=== PATIENT | female | born 1980 | race African-American/Black ===

== ENCOUNTER 2016-09-27 16:56 | Emergency (ER) | payer OTHER ==
[~2016-09-27] VITALS: Ht 165.1 cm; Wt 90.7 kg
[~2016-09-27 16:56] MED LIST: ASPIRIN EC325 M2 PO; ASPIRIN325 MG PO; BACTRIM DS TAB1 EACH PO; BENTYL20 M1 PO; CARAFATE1 GM/10 M1 PO; CIPRO 500MG (E500 MG PO; CLINDAMYCIN HC300 M1 PO; DIPHENHYDRAMINE25 M4 PO; DONNATAL TABL16.2 MG PO; DULOXETINE HCL30 MG; FERROUS SULFAT325 M3 PO; FLOVENT HFA10.6 GM INH; LABETALOL HYDR200 MG PO; MACROBID100 MG PO; MAGNESIUM OXID400 MG PO; MIRENA1 EACH; OMEPRAZOLE20 M2 PO; OXYCODONE HCL5 MG PO; PANTOPRAZOLE SO40 M1 PO; PERCOCET 10-321 EACH PO; PERCOCET 325 MG1 TA2 PO; PERCOCET 325 MG1 TAB PO; PERCOCET 5-3251 EACH PO; PHENERGAN12.5 M2 RC; PROPRANOLOL HCL20 M1 PO; PROVENTIL HFA6.7 GM INH; REGLAN10 M1 PO; TYLENOL TAB 32325 MG PO; ZOFRAN ODT4 M1 PO; ZOFRAN ODT4 M1 SL; ZOFRAN ODT4 MG PO; ZOFRAN ODT4 MG SL; ZOFRAN4 M1 PO
--- NOTE | 2016-09-27 18:38 | ED GENERAL ADULT ---
History of Present Illness General Chief Complaint: Abdominal Pain/Flank Pain Stated Complaint: ABDOMINAL PAIN,N/V/BLOOD IN URINE Source: patient Exam Limitations: no limitations Allergies Coded Allergies: ibuprofen (Severe, ANAPHYLAXIS 07/10/16) ketorolac (From Toradol) (Severe, ANAPHYLAXIS 07/10/16) peanut (Severe, ANAPHYLAXIS 07/10/16) penicillin G (Severe, ANAPHYLAXIS 07/10/16) Triage Note: C/O LOWER ABDOMINAL PAIN RADIATING TO R FLANK X 2 WEEKS, WAS DXD WITH UTI BY PMD, WAS ON CIPRO X 1 WEEK, FEELING WORSE NOW WITH BLOOD IN IN URINE AND NAUSEA AND VOMITING. Triage Nurses Notes Reviewed? yes : No Patient currently breastfeeds: No HPI: 35-year-old woman seen for evaluation of urinary pain and bloody urine. Patient reports that approximately 2-1/2 weeks ago she developed symptoms of urinary pain/frequency/urgency and subsequently visited her primary care provider a few days after symptoms onset for which she was diagnosed with a urinary tract infection. She was discharged to home with a prescription for ciprofloxacin for 7 days that she reportedly completed with no improvement of her symptoms. She reports persistence of her urinary frequency/pain/urgency now with dark bloody urine. He now reports associated fever, chills, chest discomfort, mild shortness of breath, nausea with associated bilious vomiting. (COLLIN RUANO,NICOLASA) Vital Signs & Intake/Output Vital Signs & Intake/Output Vital Signs Date Time Temp Pulse Resp B/P Pulse O2 O2 Flow FiO2 Ox Delivery Rate 09/27 2107 98.6 87 20 126/66 97 Room Air 09/27 1733 98.4 94 20 179/78 99 Room Air ED Intake and Output 09/28 0000 09/27 1200 Intake Total 1000 Output Total Balance 1000 Intake, IV 1000 Patient 90.718 kg Weight Reconcile Medications Albuterol Sulfate (Proventil Hfa) 90 MCG HFA.AER.AD 2 PUFF INH Q4H PRN WHEEZING/SHORTNESS OF BREATH (Reported) Aspirin (Ecotrin*) 325 MG TABLET.DR 1 TAB PO DAILY HEART/BLOOD (Reported) Dicyclomine HCl (Bentyl) 20 MG TABLET 1 TAB PO Q6H PRN ABDOMINAL PAIN Diphenhydramine HCl 25 MG CAPSULE 1 CAP PO PRN ITCHING (Reported) Duloxetine HCl (Unknown Strength) CAPSULE. (Unknown Dose) UNKNOWN (Reported ) Ferrous Sulfate 325 MG (65 MG IRON) TABLET 1 TAB PO DAILY SUPPLEMENT ( Reported) Fluticasone Propionate (Flovent Hfa) 0.044 MG/Actuation NIXON 2 PUFF INH BID ASTHMA/COPD (Reported) 44 MCG PER PUFF Levonorgestrel (Mirena) 52 MG ICR CONTROL (Reported) Metoclopramide HCl (Reglan) 10 MG TABLET 1 TAB PO 4 TIMES/DAY PRN N/V ( Reported) 30 minutes before meals and bedtime Metoclopramide HCl (Reglan) 10 MG TABLET 1 TAB PO 4 TIMES/DAY PRN nausea 30 minutes before meals and bedtime Ondansetron (Zofran Odt) 4 MG TAB.RAPDIS 1-2 TAB PO Q8H PRN NAUSEA Oxycodone HCl/Acetaminophen (Percocet 5-325 MG Tablet) 5 MG-325 MG TABLET 1 TAB PO Q4-6 PRN PAIN Oxycodone HCl/Acetaminophen (Percocet 5-325 MG Tablet) 5 MG-325 MG TABLET 1 TAB PO 4XDP PRN PAIN TEN...[id number] Oxycodone HCl/Acetaminophen (Percocet 10-325 MG Tablet) 10 MG-325 MG TABLET 1 TAB PO Q6 PRN PAIN Pantoprazole Sodium 40 MG TABLET.DR 1 TAB PO BID GI (Reported) Promethazine HCl (Phenergan) 12.5 MG SUPP.RECT 1-2 SUP RC Q4-6 PRN nausea PROPRANOLOL HCL (Propranolol HCl) 20 MG TAB 1 TAB PO TID MIGRAINES (Reported) Sucralfate (Carafate) 1 GRAM/10 ML ORAL.SUSP 10 ML PO TID GI (Reported) 1 hour before food and bedtime Sulfamethoxazole/Trimethoprim (Bactrim Ds Tablet) 800 MG-160 MG TABLET 1 TAB PO BID uti (BROOKLYNN RUANO,LILLIE) Past History Travel History Traveled to [place] past 21 day No Medical History Any Pertinent Medical History? 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 Yes (NICOLASA POLANCO MD) Review of Systems Review of Systems Constitutional: Reports: see HPI. (NICOLASA POLANCO MD) Physical Exam Physical Exam General Appearance: alert, awake, anxious, moderate distress Comments: General -well-developed, obese -[place] woman in moderate distress. HEENT - NCAT, PERRL, EOMI, anicteric sclera, dry mucous membranes Cardio - S1, S2 w/o murmurs/gallops/rubs Resp -diffuse rhonchi without any obvious crackles GI - soft, diffuse abdominal tenderness without guarding or rigidity, nondistended, bowel sounds present, exquisite right CVA tenderness Neuro - Awake and alert, CN II - XII grossly intact Extremities - no edema, pulses intact Core Measures ACS in differential dx? No CVA/TIA Diagnosis: No Severe Sepsis Present: No Septic Shock Present: No (NICOLASA POLANCO MD) Progress Differential Diagnoses I considered the following diagnoses in my evaluation of the patient: Acute cystitis, pyelonephritis, sepsis, gastroenteritis, pancreatitis, colitis Initial ED EKG: none Comments: Given patient's reported history of a recent urinary tract infection it is possible that she failed outpatient oral antibiotic therapy as she may have had a organism resistant to ciprofloxacin. Given her current clinical condition is possible that patient has a persistent urinary tract infection that may have evolved into a pyelonephritis with possible bacteremia. Urinalysis, urine test, blood cultures 2, urine cultures, complete blood count, complete metabolic panel, lactic acid, and lipase were ordered. Patient was started on intravenous normal saline, antiemetics, and given narcotic pain medications. (NICOLASA POLANCO MD) Plan of Care: Orders Procedure Date/time Status Add-on Test (ER Only) 09/27 2050 Active BLOOD CULTURE 09/27 183 Active LIPASE 09/27 183 Complete LACTIC ACID 09/27 183 Complete COMPREHENSIVE METABOLIC PANEL 09/27 183 Complete CBC WITHOUT DIFFERENTIAL 09/27 183 Complete URINE DRUGS OF ABUSE 09/27 1827 Complete CULTURE,URINE 09/27 1819 Active URINE 09/27 1705 Complete URINALYSIS 09/27 1705 Complete Laboratory Tests 09/27/162131: Lactic Acid Cancelled 09/27/161952: Anion Gap 10, Estimated GFR > 60, BUN/Creatinine Ratio 13.8, Glucose 93, Lactic Acid 1.0, Calcium 9.0, Total Bilirubin 0.4, AST 23, ALT 43, Alkaline Phosphatase 69, Total Protein 7.5, Albumin 4.0, Globulin 3.5, Albumin/Globulin Ratio 1.1, Lipase 358 H 09/27/161914: CBC w Diff NO MAN DIFF REQ, RBC 4.69, MCV 72.3 L, MCH 23.1 L, RDW 15.0 H, MPV 8.6, Gran % 74.3, Lymphocytes % 19.6 L, Monocytes % 2.8, Eosinophils % 2.5, Basophils % 0.8, Absolute Granulocytes 3.4, Absolute Lymphocytes 0.9 L, Absolute Monocytes 0.1 L, Absolute Eosinophils 0.1, Absolute Basophils 0, PUBS MCHC 31.9 L 09/27/161826: Urine Opiates Screen < 100.00, Methadone Screen < 40, Barbiturate Screen < 60, Ur Phencyclidine Scrn < 6.00, Amphetamines Screen < 100, U Benzodiazepines Scrn < 85, Urine Cocaine Screen < 50, Urine Cannabis Screen < 5.00, Urine Color YEL, Urine Clarity HAZY H, Urine pH 7.5, Ur Specific [employer] 1.020, Urine Protein 30 H, Urine Ketones NEG, Urine Nitrite NEG, Urine Bilirubin NEG, Urine Urobilinogen 0.2, Ur Leukocyte Esterase TRACE H, Ur Microscopic SEDIMENT EXAMINED, Urine RBC PACKD H, Urine WBC 3-5 H, Ur Epithelial Cells MOD H, Urine Hemoglobin LARGE H, Urine Glucose NEG, Urine Test NEGATIVE Microbiology 09/27 1949 BLOOD: Blood Culture - RECD 09/27 1899 BLOOD: Blood Culture - RECD 09/27 1826 URINE ROUT: Urine Culture - RECD Diagnostic Imaging: Viewed by Me: CT Scan. Discussed w/RAD: CT Scan. Radiology Impression: PATIENT: SWETHA ROSE PRESENT AGE: 35 PATIENT ACCOUNT NO: [id number] : 80 LOCATION: [facility] ORDERING PHYSICIAN: LILLIE OVERTON MD SERVICE DATE: 09/27/16 EXAM TYPE: CAT - CT ABD & PELVIS W/O IV CONTRAS EXAMINATION: CT ABDOMEN AND PELVIS WITHOUT CONTRAST CLINICAL INFORMATION: Severe right flank pain. COMPARISON: CT from . TECHNIQUE: Multidetector volumetric imaging was performed from the superior aspect of the liver through the pubic symphysis. Sagittal and coronal reformatted images were obtained on the technologist's workstation. DLP: 501 mGy -cm FINDINGS: The lung bases are clear. There are no pleural effusions. Small dystrophic calcifications are unchanged in the liver parenchyma. There is no hydronephrosis or nephrolithiasis. No perinephric stranding is seen. The ureters are of normal caliber. No obstructing calculus is visible. The bladder is distended without wall thickening. No bladder calcifications are seen. The remaining solid unenhanced visceral organs are normal. The gallbladder is again not visualized. There is no evidence of a bowel obstruction. No free air or free fluid is seen. There is a small hiatal hernia. The patient has had a prior appendectomy. An IUD is again visible within the mid to lower uterine segment. There is a mild amount of fluid in the endometrial cavity at the fundus. No dominant adnexal cystic lesions are seen. No drainable fluid collection is seen. No acute osseous abnormality is identified. There are sclerotic changes around the SI joints which demonstrate mild vacuum phenomenon. Hypertrophic facet arthropathy is again visible in the lower lumbar spine. IMPRESSION: No acute intra-abdominal or pelvic process to explain the patient's presenting symptoms. IUD again visible within the mid to lower endometrial cavity. DICTATED BY: DALLIN BOBO MD DATE/TIME DICTATED:09/27/162037 WREATH MACHINE OPERATOR:BONNIE DATE/TIME TRANSCRIBED:09/27/162037 CONFIDENTIAL, DO NOT COPY WITHOUT APPROPRIATE AUTHORIZATION. <Electronically signed in Other Vendor System> SIGNED BY: DALLIN BOBO MD 09/27/162052 (LILLIE OVERTON MD) Departure Departure Condition: Stable Clinical Impression Primary Impression: Abdominal pain Qualifiers: Abdominal location: right upper quadrant Qualified Code: R10.11 - Right upper quadrant pain Referrals: JUAN LUIS RUANO,SARI LYNN (PCP/Family) Departure Forms: Customer Survey General Discharge Information (NICOLASA POLANCO MD) Departure Time of Disposition: 2123 Disposition: HOME OR SELF CARE Additional Instructions: Continue your regular prescriptions. Follow up with your [facility] doctor in [place]. Take the medications as directed. Prescriptions: Current Visit Scripts Oxycodone HCl/Acetaminophen (Percocet 5-325 MG Tablet) 1 TAB PO Q4-6 PRN PAIN #8 TAB Resident Co-Sign Statement Statement: ED Attending supervision documentation- [X] I saw and evaluated the patient. I have also reviewed all the pertinent lab results and diagnostic results. I agree with the findings and the plan of care as documented in the Resident's documentation. [X] I have reviewed the ED Record and agree with the Resident's documentation. [] Additions or exceptions (if any) to the Resident's note and plan are summarized below: [] (BROOKLYNN RUANO,LILLIE) Critical Care Note Critical Care Note Critical Care Time: non-applicable (COLLIN RUANO,NICOLASA)
[2016-09-27 19:23] LABS: ABSOLUTE BASOPHIL COUNT 0 /CUMM (0.0-0.2); ABSOLUTE EOSINOPHIL COUNT 0.1 /CUMM (0.0-0.7); ABSOLUTE GRANULOCYTE CT 3.4 /CUMM (1.4-6.5); ABSOLUTE LYMPH COUNT 0.9 /CUMM (1.2-3.4); ABSOLUTE MONOCYTE COUNT 0.1 /CUMM (0.10-0.60); BASOPHIL % 0.8 % (0.0-2.0); EOSINOPHIL % 2.5 % (0-5); GRANULOCYTE % 74.3 % (42.2-75.2); HEMATOCRIT 33.9 % (37-47); MEAN CORPUSCULAR HGB 23.1 PG (27.0-31.0); MEAN CORPUSCULAR HGB CONC 31.9 G/DL (33.0-37.0); MEAN CORPUSCULAR VOLUME 72.3 FL (81.0-99.0); MEAN PLATELET VOLUME 8.6 FL (7.4-10.4); PLATELET COUNT 250 /CUMM (130-400); RED BLOOD CELL CT 4.69 /CUMM (4.20-5.40); WHITE BLOOD CELL COUNT 4.6 /CUMM (4.8-10.8)
--- NOTE | 2016-09-27 20:53 | CT SCAN REPORT ---
EXAMINATION: CT ABDOMEN AND PELVIS WITHOUT CONTRAST CLINICAL INFORMATION: Severe right flank pain. COMPARISON: CT from 07/10/2016. TECHNIQUE: Multidetector volumetric imaging was performed from the superior aspect of the liver through the pubic symphysis. Sagittal and coronal reformatted images were obtained on the technologist's workstation. DLP: 501 mGy-cm FINDINGS: The lung bases are clear. There are no pleural effusions. Small dystrophic calcifications are unchanged in the liver parenchyma. There is no hydronephrosis or nephrolithiasis. No perinephric stranding is seen. The ureters are of normal caliber. No obstructing calculus is visible. The bladder is distended without wall thickening. No bladder calcifications are seen. The remaining solid unenhanced visceral organs are normal. The gallbladder is again not visualized. There is no evidence of a bowel obstruction. No free air or free fluid is seen. There is a small hiatal hernia. The patient has had a prior appendectomy. An IUD is again visible within the mid to lower uterine segment. There is a mild amount of fluid in the endometrial cavity at the fundus. No dominant adnexal cystic lesions are seen. No drainable fluid collection is seen. No acute osseous abnormality is identified. There are sclerotic changes around the SI joints which demonstrate mild vacuum phenomenon. Hypertrophic facet arthropathy is again visible in the lower lumbar spine. IMPRESSION: No acute intra-abdominal or pelvic process to explain the patient's presenting symptoms. IUD again visible within the mid to lower endometrial cavity.
[2016-09-27 21:07] VITALS: BP 126/66
[2016-09-27] MEDS ORDERED: PERCOCET 5-3251 EACH PO (21:31)
== END 2016-09-27 21:30 ==
LOC: ERH 16:56
PROVIDERS: Internal Medicine Interventional Cardiology
DX: R10.9 Unspecified abdominal pain (principal); R11.2 Nausea with vomiting, unspecified; R31.9 Hematuria, unspecified
CPT/HCPCS: 74176; 80307; 81001; 81025; 87040; 87086; 96361; 96374; 96375; 96376; J2405

== ENCOUNTER 2016-11-07 12:00 | Emergency (ER) | payer OTHER ==
[~2016-11-07] VITALS: Ht 165.1 cm; Wt 89.8 kg
--- NOTE | 2016-11-07 16:14 | ED GI/GU/ABDOMINAL COMPLAINT ---
History of Present Illness General Chief Complaint: Abdominal Pain/Flank Pain Stated Complaint: RECTAL BLEEDING,ABD PAIN Source: patient Exam Limitations: no limitations Vital Signs & Intake/Output Vital Signs & Intake/Output Vital Signs Date Time Temp Pulse Resp B/P Pulse O2 O2 Flow FiO2 Ox Delivery Rate 11/07 1904 97 18 186/82 98 11/07 1645 Room Air 11/07 1618 97.3 92 18 162/82 100 Room Air 11/07 1212 98.2 126 20 187/105 97 Room Air ED Intake and Output 11/08 0000 11/07 1200 Intake Total 1000 Output Total Balance 1000 Intake, IV 1000 Patient 198 lb Weight Allergies Coded Allergies: ibuprofen (Severe, ANAPHYLAXIS 07/10/16) ketorolac (From Toradol) (Severe, ANAPHYLAXIS 07/10/16) peanut (Severe, ANAPHYLAXIS 07/10/16) penicillin G (Severe, ANAPHYLAXIS 07/10/16) Reconcile Medications Albuterol Sulfate (Proventil Hfa) 90 MCG HFA.AER.AD 2 PUF INH Q4 PRN WHEEZING/ SOB (Reported) Aspirin (Ecotrin*) 325 MG TABLET.DR 1 TAB PO DAILY HEART/BLOOD (Reported) Diphenhydramine HCl 25 MG CAPSULE 1 CAP PO PRN ITCHING (Reported) Fluticasone Propionate (Flovent Hfa) 44 MCG AER.W.ADAP 2 PUF INH BID ASTHMA ( Reported) Levonorgestrel (Mirena) 20 MCG/24 HOUR (5 YEARS) IUD CONTROL (Reported) Metoclopramide HCl (Reglan) 10 MG TABLET 1 TAB PO 4 TIMES/DAY PRN N/V ( Reported) 30 minutes before meals and bedtime Metoclopramide HCl (Reglan) 10 MG TABLET 1 TAB PO 4 TIMES/DAY PRN NAUSEA 30 minutes before meals and bedtime Pantoprazole Sodium 40 MG TABLET.DR 1 TAB PO BID GI (Reported) Phenylephrine HCl (Treasure-Med) 0.25 % SUPP.RECT 1 SUPP RC TID PRN HEMORRHOID Propranolol HCl 20 MG TABLET 1 TAB PO TID MIGRAINES (Reported) Sucralfate (Carafate) 1 GRAM/10 ML ORAL.SUSP 10 ML PO TID GI (Reported) 1 hour before food and bedtime Tramadol HCl 50 MG TABLET 1 TAB PO BIDP PRN PAIN Triage Note: PT TO ED C/O N/V SINCE YESTERDAY. STATES NOTICED BLOOD IN STOOL YESTERDAY, WITH A NORMAL BM. DENIES S/S. C/O ABD PAIN. Triage Nurses Notes Reviewed? yes ? n Is pt currently ? No Onset: Gradual Duration: day(s): (2) Timing: no prior history Quality/Severity: sharpness, severe Severity Numbers: 9 Location: generalized abdomen Radiation: no radiation Activities at Onset: none Prior Abdominal Problems: none Past Sexual History: Unobtainable at this time HPI: Patient is a 35-year-old female presenting to the emergency department with chief complaint of generalized abdominal pain with nausea vomiting and bloody stools that have been going on since yesterday. Patient reports that she feels distended. Denies any diarrhea. No blood in the vomit. History of similar symptoms several years ago and sees a night auditor. Has not seen him in a while. Denies any fevers or chills. No sick contacts. Denies recent antibiotic use. Nothing seems to make it better or worse. (GOLDIE BENNETT) Past History Travel History Traveled to [place] past 21 day No Medical History Any Pertinent Medical History? 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 No (GOLDIE BENNETT) Review of Systems Review of Systems Constitutional: Reports: no symptoms. Comments Review of systems: See HPI, All other systems negative. Constitutional, no chills fever or weight loss HEENT: No visual changes no sore throat no congestion Cardiovascular: No chest pain ,palpitation , orthopnea or ankle swelling Skin, no jaundice no rashes Respiratory: No dyspnea cough sputum or hemoptysis GI: Positive nausea and vomiting : No dysuria No hematuria Muscle skeletal: no back pain, no neck pain, Neurologic: No numbness no confusion Psych: No stress anxiety or depression,. Heme/endocrine: No bruising no bleeding no polyuria or polydipsia Immunology: No splenectomy or history of AIDS (GOLDIE BENNETT) Physical Exam Physical Exam General Appearance: alert, awake, anxious, mild distress Gastrointestinal: guarding, tenderness Comments: Well-developed well-nourished person in no acute distress HEENT: Pupils equally round and reactive to light and accommodation. Nose is atraumatic. Pharynx normal. No swelling or edema. No pallor to palpable conjunctiva. Neck: Supple, no lymphadenopathy, normal range of motion without pain or tenderness Back: Nontender, no CVA tenderness. Cardiovascular: Regular rate and rhythms no murmurs rubs or gallops, normal JVP Respiratory: Chest nontender. No respiratory distress.breath sounds clear to auscultation bilaterally Abdomen: Slightly distended, hypoactive bowel sounds throughout, diffuse tenderness to palpation with guarding,, no appreciable organomegaly. Rectal exam: Nontender, no palpable or visualized hemorrhoids. Minimal stool in the vault, guaiac negative. Extremity: No edema Neuro: Alert oriented x3 Skin: No appreciable rash on exposed skin, skin is warm and dry. Psych: Mood and affect is normal, memory and judgment is normal. Core Measures ACS in differential dx? No Severe Sepsis Present: No Septic Shock Present: No (GOLDIE BENNETT) Progress Differential Diagnosis: GI BLEED, DIVERTICULITIS, PERFORATED VISCUS, Plan of Care: Orders Procedure Date/time Status Add-on Test (ER Only) 11/07 1839 Active PARTIAL THROMBOPLASTIN TIME 11/07 1611 Complete PROTHROMBIN TIME 11/07 1611 Complete LACTIC ACID 11/07 1611 Complete COMPREHENSIVE METABOLIC PANEL 11/07 1611 Complete CBC WITHOUT DIFFERENTIAL 11/07 1611 Complete URINE DRUGS OF ABUSE 11/07 1215 Complete URINE 11/07 1205 Complete URINALYSIS 11/07 1205 Complete Laboratory Tests 11/07/16 1911: Lactic Acid Cancelled 11/07/16 1613: Anion Gap 11, Estimated GFR > 60, BUN/Creatinine Ratio 12.9, Glucose 94, Lactic Acid 1.1, Calcium 9.5, Total Bilirubin 0.5, AST 20, ALT 42, Alkaline Phosphatase 74, Total Protein 7.9, Albumin 4.3, Globulin 3.6, Albumin/Globulin Ratio 1.2, PT 10.9, INR 1.04, APTT 31, CBC w Diff NO MAN DIFF REQ, RBC 4.86, MCV 71.7 L, MCH 22.5 L, RDW 15.0 H, MPV 8.6, Gran % 55.1, Lymphocytes % 35.9, Monocytes % 6.0, Eosinophils % 2.4, Basophils % 0.6, Absolute Granulocytes 2.5, Absolute Lymphocytes 1.6, Absolute Monocytes 0.3, Absolute Eosinophils 0.1, Absolute Basophils 0, PUBS MCHC 31.5 L 11/07/16 1215: Urine Opiates Screen < 100.00, Methadone Screen 42, Barbiturate Screen < 60, Ur Phencyclidine Scrn < 6.00, Amphetamines Screen < 100, U Benzodiazepines Scrn < 85, Urine Cocaine Screen < 50, Urine Cannabis Screen < 5.00, Urine Color YEL, Urine Clarity HAZY H, Urine pH 6.0, Ur Specific [place] 1.025, Urine Protein TRACE H, Urine Ketones NEG, Urine Nitrite NEG, Urine Bilirubin NEG, Urine Urobilinogen 0.2, Ur Leukocyte Esterase NEG, Ur Microscopic SEDIMENT EXAMINED, Urine RBC 50-75 H, Urine WBC RARE, Ur Epithelial Cells FEW, Urine Bacteria FEW H, Urine Mucus MOD H, Urine Hemoglobin LARGE H, Urine Glucose NEG, Urine Test NEGATIVE Diagnostic Imaging: Viewed by Me: CT Scan. Discussed w/RAD: CT Scan. Radiology Impression: PATIENT: SWETHA ROSE PRESENT AGE: 35 PATIENT ACCOUNT NO: [id number] : 80 LOCATION: [facility] ORDERING PHYSICIAN: GOLDIE LOPEZ SERVICE DATE: 11/07/16 EXAM TYPE: CAT - CT ABD & PELVIS W IV CONTRAST EXAMINATION: CT ABDOMEN AND PELVIS WITH CONTRAST CLINICAL INFORMATION: Periumbilical pain with rectal bleeding. COMPARISON: 09/27/2016 TECHNIQUE: Multidetector volumetric imaging was performed of the abdomen and pelvis before and after the IV administration of 95 mL of Optiray 320 intravenous contrast. Sagittal and coronal reformatted images were obtained on the technologist's workstation. DLP: 462 mGy-cm FINDINGS: LUNG BASES : The visualized lung bases are unremarkable. LIVER, GALLBLADDER, AND BILIARY TREE: The liver is normal in size and shape with decreased attenuation. No focal hepatic lesion or biliary ductal dilatation is present. The gallbladder is not visualized and likely absent. PANCREAS: Unremarkable. SPLEEN: Unremarkable. ADRENAL GLANDS: Unremarkable. KIDNEYS AND URETERS: The kidneys are normal in size, shape, and attenuation. No hydronephrosis, hydroureter, or calculi seen. No perinephric stranding. BLADDER: Unremarkable. GASTROINTESTINAL TRACT: Small hiatal hernia. The stomach and small bowel are unremarkable. No dilated loops of bowel or evidence of obstruction. Prior appendectomy. No colonic wall thickening or inflammatory changes. No free air or free fluid. ABDOMINAL WALL: No significant hernia is appreciated. LYMPH NODES: Normal. VASCULAR: Unremarkable. PELVIC VISCERA: An IUD is in place, again noted positioned within the mid endometrial cavity. No adnexal mass. OSSEOUS STRUCTURES: No acute or suspicious osseous abnormality. IMPRESSION: No acute findings of the abdomen or pelvis. No acute inflammatory changes. Hepatic steatosis. DICTATED BY: IRAIS TREJO MD Initial ED EKG: none Comments: 11/07/2016 6:48:53 PM patient still complaining about pain. She reports some mild relief after the 1 mg Dilaudid. She also reports that she was able to pass gas but is having blood in her panty liner. Requesting more nausea medication. Patient was informed of all lab work results. H&H stable. On reevaluation patient does have blood around the rectum with positive guaiac. No stool in the vault. Paging on-call night auditor. 11/07/2016 7:22:[address] Bellamy regarding this patient. He reports that she is a very noncompliant patient and chronic pain patient. He reports that this likely internal hemorrhoids as this was found when she had a colonoscopy in June. Recommending treatment for hemorrhoids and patient will follow-up with Dr. Gu outpatient. (JUSTA LOPEZ,GOLDIE) Departure Departure Time of Disposition: 1854 Disposition: HOME OR SELF CARE Condition: Stable Clinical Impression Primary Impression: Rectal bleeding Referrals: JUAN LUIS RUANO,SARI LYNN (PCP/Family) EVY GU MD Additional Instructions: Follow-up with your night auditor call to make an appointment.. He used suppositories as prescribed. Take pain medication as prescribed. Return for worsening symptoms or concerns. I see her previous colonoscopy there were a few internal hemorrhoids noted. This can cause bleeding and pain. Departure Forms: Customer Survey General Discharge Information Prescriptions: Current Visit Scripts Phenylephrine HCl (Treasure-Med) 1 SUPP RC TID PRN HEMORRHOID #20 TAB Tramadol HCl 1 TAB PO BIDP PRN PAIN #10 TAB Metoclopramide HCl (Reglan) 1 TAB PO 4 TIMES/DAY PRN NAUSEA #15 TAB 30 minutes before meals and bedtime (GOLDIE BENNETT) PA/SHOP WORKER Co-Sign Statement Statement: ED Attending supervision documentation- [] I saw and evaluated the patient. I have also reviewed all the pertinent lab results and diagnostic results. I agree with the findings and the plan of care as documented in the PA's/SHOP WORKER's documentation. [X] I have reviewed the ED Record and agree with the PA's/SHOP WORKER's documentation. [] Additions or exceptions (if any) to the PAs/SHOP WORKER's note and plan are summarized below: [] (BROOKLYNN RUANO,LILLIE)
[2016-11-07 16:40] LABS: ABSOLUTE BASOPHIL COUNT 0 /CUMM (0.0-0.2); ABSOLUTE EOSINOPHIL COUNT 0.1 /CUMM (0.0-0.7); ABSOLUTE GRANULOCYTE CT 2.5 /CUMM (1.4-6.5); ABSOLUTE LYMPH COUNT 1.6 /CUMM (1.2-3.4); ABSOLUTE MONOCYTE COUNT 0.3 /CUMM (0.10-0.60); BASOPHIL % 0.6 % (0.0-2.0); EOSINOPHIL % 2.4 % (0-5); GRANULOCYTE % 55.1 % (42.2-75.2); HEMATOCRIT 34.9 % (37-47); MEAN CORPUSCULAR HGB 22.5 PG (27.0-31.0); MEAN CORPUSCULAR HGB CONC 31.5 G/DL (33.0-37.0); MEAN CORPUSCULAR VOLUME 71.7 FL (81.0-99.0); MEAN PLATELET VOLUME 8.6 FL (7.4-10.4); PLATELET COUNT 271 /CUMM (130-400); RED BLOOD CELL CT 4.86 /CUMM (4.20-5.40); WHITE BLOOD CELL COUNT 4.5 /CUMM (4.8-10.8)
[2016-11-07 16:48] LABS: PT 10.9 SEC (9.4-12.5); PTT 31 SEC (25-37)
--- NOTE | 2016-11-07 18:31 | CT SCAN REPORT ---
EXAMINATION: CT ABDOMEN AND PELVIS WITH CONTRAST CLINICAL INFORMATION: Periumbilical pain with rectal bleeding. COMPARISON: 09/27/2016 TECHNIQUE: Multidetector volumetric imaging was performed of the abdomen and pelvis before and after the IV administration of 95 mL of Optiray 320 intravenous contrast. Sagittal and coronal reformatted images were obtained on the technologist's workstation. DLP: 462 mGy-cm FINDINGS: LUNG BASES: The visualized lung bases are unremarkable. LIVER, GALLBLADDER, AND BILIARY TREE: The liver is normal in size and shape with decreased attenuation. No focal hepatic lesion or biliary ductal dilatation is present. The gallbladder is not visualized and likely absent. PANCREAS: Unremarkable. SPLEEN: Unremarkable. ADRENAL GLANDS: Unremarkable. KIDNEYS AND URETERS: The kidneys are normal in size, shape, and attenuation. No hydronephrosis, hydroureter, or calculi seen. No perinephric stranding. BLADDER: Unremarkable. GASTROINTESTINAL TRACT: Small hiatal hernia. The stomach and small bowel are unremarkable. No dilated loops of bowel or evidence of obstruction. Prior appendectomy. No colonic wall thickening or inflammatory changes. No free air or free fluid. ABDOMINAL WALL: No significant hernia is appreciated. LYMPH NODES: Normal. VASCULAR: Unremarkable. PELVIC VISCERA: An IUD is in place, again noted positioned within the mid endometrial cavity. No adnexal mass. OSSEOUS STRUCTURES: No acute or suspicious osseous abnormality. IMPRESSION: No acute findings of the abdomen or pelvis. No acute inflammatory changes. Hepatic steatosis.
[2016-11-07] MEDS ORDERED: REGLAN10 M1 PO (18:59)
[2016-11-07] MEDS ORDERED: TRAMADOL HCL50 M1 PO (18:59)
[2016-11-07] MEDS ORDERED: ANU MED RC (18:59)
[2016-11-07 19:04] VITALS: BP 186/82
== END 2016-11-07 19:45 ==
LOC: ERH 12:00
PROVIDERS: Physician Assistant
DX: K62.5 Hemorrhage of anus and rectum (principal); R10.84 Generalized abdominal pain; D64.9 Anemia, unspecified
CPT/HCPCS: 74177; 80307; 81001; 81025; 96374; 96375; 96376; J2765

== ENCOUNTER 2017-08-29 16:07 | Emergency (ER) | payer OTHER ==
[~2017-08-29] VITALS: Ht 165.1 cm; Wt 88.5 kg
[~2017-08-29 16:07] MED LIST changes: +ANU MED RC; +CIPRO500 M1 PO; +DILAUDID2 M1 PO; +LEVSIN0.125 M1 PO; +PROMETHAZINE HC25 M3 PO; +TRAMADOL HCL50 M1 PO
[2017-08-29 17:31] LABS: ABSOLUTE BASOPHIL COUNT 0 /CUMM (0.0-0.2); ABSOLUTE EOSINOPHIL COUNT 0.1 /CUMM (0.0-0.7); ABSOLUTE GRANULOCYTE CT 1.9 /CUMM (1.4-6.5); ABSOLUTE LYMPH COUNT 1.3 /CUMM (1.2-3.4); ABSOLUTE MONOCYTE COUNT 0.2 /CUMM (0.10-0.60); BASOPHIL % 1.1 % (0.0-2.0); EOSINOPHIL % 3.9 % (0-5); GRANULOCYTE % 52.1 % (42.2-75.2); HEMATOCRIT 36.5 % (37-47); MEAN CORPUSCULAR HGB 22.7 PG (27.0-31.0); MEAN CORPUSCULAR HGB CONC 31.3 G/DL (33.0-37.0); MEAN CORPUSCULAR VOLUME 72.4 FL (81.0-99.0); MEAN PLATELET VOLUME 10.1 FL (7.4-10.4); PLATELET COUNT 261 /CUMM (130-400); RBC DISTRIBUTION WIDTH 15.6 % (11.5-14.5); RED BLOOD CELL CT 5.04 /CUMM (4.20-5.40); WHITE BLOOD CELL COUNT 3.6 /CUMM (4.8-10.8)
--- NOTE | 2017-08-29 20:29 | ED MVC/FALL/TRAUMA COMPLAINT ---
History of Present Illness General Chief Complaint: General Adult Stated Complaint: NVD, ?NEAR-SYNCOPE, FALL, L KNEE PAIN Source: patient Exam Limitations: no limitations Allergies Coded Allergies: ibuprofen (Severe, ANAPHYLAXIS 07/10/16) ketorolac (From Toradol) (Severe, ANAPHYLAXIS 07/10/16) peanut (Severe, ANAPHYLAXIS 07/10/16) penicillin G (Severe, ANAPHYLAXIS 07/10/16) Reconcile Medications Aspirin (Ecotrin*) 325 MG TABLET.DR 1 TAB PO DAILY HEART/BLOOD (Reported) Levonorgestrel (Mirena) 20 MCG/24 HOUR (5 YEARS) IUD CONTROL (Reported) Ondansetron (Zofran Odt) 4 MG TAB.RAPDIS 1 TAB PO Q6 PRN NAUSEA Promethazine HCl 25 MG TABLET 1 TAB PO Q6P PRN NAUSEA Triage Note: 36 YO FEMALE TO TRIAGE C/O LIGHTHEADNESS/DIZZINESS. STATES SHE FELL TODAY HURTING HER L KNEE, UNSURE IF SHE PASSED OUT. STATES POSS CHANCE OF . PT DENIES CHETS PAIN. Triage Nurses Notes Reviewed? yes : No Patient currently breastfeeds: No HPI: PATIENT HISTORIAN REPORTS THAT SHE HAS A HX OF MIGRAINES BUT HAVEN'T HAD IT IN YEARS. ONLY USES ACETAMINOPHEN WITHOUT IMPROVEMENT. LAST 2 DAYS SHE HAS BEEN HAVING PERSISTENT TEMPORAL THROBBING PAIN THAT RADIATES TO HER R FACE. SHEPHERD EXACERBATED BY LIGHT AND NOISE. PERSISTENT NAUSEA AND VOMITING x 2 DAYS. POOR APPETITE. FELT LIGHTHEADED AND FELL TO FLOOR. SISTER WITNESSED FALL, DENIES LOC. FELL ON L LEG IN WHICH SHE HAD PREVIOUS SURGERY FOR ACL AND PATELLA RUPTURE. SHOOTING PAIN RADIATING DOWN LEG WITH TENDERNESS. DENIES BACK PAIN, CALF TENDERNESS, URINARY OR BOWEL SYMTPOMS. (Fiordaliza RUANO,Shawn) Vital Signs & Intake/Output Vital Signs & Intake/Output Vital Signs Date Time Temp Pulse Resp B/P B/P Pulse O2 O2 Flow FiO2 Mean Ox Delivery Rate 08/29 2157 98.7 78 18 128/74 98 Room Air 08/29 1618 98.2 101 18 97/67 98 Room Air ED Intake and Output 08/30 0000 08/29 1200 Intake Total Output Total Balance Patient 195 lb Weight Weight Reported by Patient Measurement Method (Khushboo RUANO,Velvet) Past History Travel History Traveled to [place] past 21 day No Medical History Any Pertinent Medical History? 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 Yes (Shawn Mancera MD) Review of Systems Review of Systems Constitutional: Reports: see HPI. (Shawn Mancera MD) Review of Systems Musculoskeletal: Reports: joint pain. (Velvet Cuello MD) Physical Exam Physical Exam General Appearance: well developed/nourished, alert, awake, moderate distress Head: atraumatic, normal appearance Eyes: Bilateral: vision change. Ears, Nose, Throat, Mouth: hearing grossly normal Neck: normal inspection, supple, full range of motion Respiratory: normal breath sounds, lungs clear Cardiovascular: regular rate/rhythm Gastrointestinal: normal bowel sounds, soft, non-tender, no organomegaly Extremities: Unable to passively or actively flex L knee due to pain. Tender on palpation around knee and thigh, 2 surgical scars on L medial and anterior knee Core Measures ACS in differential dx? No CVA/TIA Diagnosis No Sepsis Present: No Sepsis Focused Exam Completed? No (Shawn Mancera MD) Physical Exam Neurologic/Psych: no motor/sensory deficits, awake, alert, oriented x 3 Skin: intact, normal color, warm/dry (Velvet Cuello MD) Progress Differential Diagnosis: C/T/L spine injury, humeral fracture, herniated disc Plan of Care: Orders Procedure Date/time Status Durable Medical Equipment 08/30 0247 Active Add-on Test (ER Only) 08/29 2145 Active HUMAN BETA HCG SCREEN 08/29 1655 Complete COMPREHENSIVE METABOLIC PANEL 08/29 1619 Complete CBC WITHOUT DIFFERENTIAL 08/29 1619 Complete EKG 08/29 1619 Active Current Medications Sig/Nora Start time Last Medication Dose Stop Time Status Admin Ondansetron HCl 4 MG ONCE ONE 08/29 2114 CAN (Zofran) 08/29 2115 Ondansetron HCl 0 .STK-MED ONE 08/29 2108 CAN (Zofran) Ondansetron HCl 4 MG ONCE ONE 08/29 2044 CAN (Zofran) 08/29 2045 Laboratory Tests 08/29/17 1655: Anion Gap 15, Estimated GFR > 60, BUN/Creatinine Ratio 10.0, Glucose 99, Calcium 9.7, Total Bilirubin 0.3, AST 30, ALT 51, Alkaline Phosphatase 77, Total Protein 8.2, Albumin 4.5, Globulin 3.7, Albumin/Globulin Ratio 1.2, Total Beta HCG NEGATIVE, CBC w Diff NO MAN DIFF REQ, RBC 5.04, MCV 72.4 L, MCH 22.7 L, RDW 15.6 H, MPV 10.1, Gran % 52.1, Lymphocytes % 37.0, Monocytes % 5.9, Eosinophils % 3.9, Basophils % 1.1, Absolute Granulocytes 1.9, Absolute Lymphocytes 1.3, Absolute Monocytes 0.2, Absolute Eosinophils 0.1, Absolute Basophils 0, PUBS MCHC 31.3 L (Fiordaliza RUANO,Shawn) Differential Diagnosis: humeral fracture, herniated disc, MIGRAINE HEADACHE, NARCOTIC SEEKING Diagnostic Imaging: Viewed by Me: Radiology Read. Discussed w/RAD: Radiology Read. Radiology Impression: PATIENT: SWETHA ROSE PRESENT AGE: 36 PATIENT ACCOUNT NO: [id number] : 80 LOCATION: [facility] ORDERING PHYSICIAN: Shawn Mancera MD SERVICE DATE: 08/29/17-2031 EXAM TYPE: RAD - XRY-FEMUR, LEFT 2 VIEWS; XRY-KNEE, LEFT EXAMINATION: 1. Left knee. 2. Left femur. CLINICAL INFORMATION: Limited range of motion. Severe pain. COMPARISON: None TECHNIQUE: 1. Left knee. 4 views 2. Left femur. 2 views FINDINGS: Left knee. 2 orthopedic screws are present in parallel in the patella oriented superior inferior. No fracture line of patella. There is mild joint narrowing of the medial femoral tibial joint. No bone erosions and no bone spurring. No joint effusion. No soft tissue calcification. Left femur: No acute abnormality. No fracture. Hip joint is normal. IMPRESSION: 1. Left knee. No acute abnormality. Status post ORIF patella. 2. Left femur. No acute abnormality. DICTATED BY: Arose MD,Porfirio DATE/TIME DICTATED:08/29/172058 TRAFFIC RECORDER:BONNIE DATE/TIME TRANSCRIBED:08/29/172058 CONFIDENTIAL, DO NOT COPY WITHOUT APPROPRIATE AUTHORIZATION. <Electronically signed in Other Vendor System> SIGNED BY: Porfirio Calixto MD 08/29/172105 (Velvet Cuello MD) Departure Departure Condition: Stable (Fiordaliza RUANO,Shawn) Departure Time of Disposition: 0150 Disposition: HOME OR SELF CARE Clinical Impression Primary Impression: Migraine headache Secondary Impressions: Knee contusion Referrals: Marcus RUANO,Kong Marin (PCP/Family) Additional Instructions: CONTINUE YOUR REGULAR MEDICATIONS ZOFRAN NEEDED FOR NAUSEA FOLLOW UP WITH YOUR DOCTOR IN THE OFFICE Departure Forms: Customer Survey General Discharge Information Prescriptions: Current Visit Scripts Ondansetron (Zofran Odt) 1 TAB PO Q6 PRN NAUSEA #20 TAB Resident Co-Sign Statement Statement: ED Attending supervision documentation- [X] I saw and evaluated the patient. I have also reviewed all the pertinent lab results and diagnostic results. I agree with the findings and the plan of care as documented in the Resident's documentation. [X] I have reviewed the ED Record and agree with the Resident's documentation. [] Additions or exceptions (if any) to the Resident's note and plan are summarized below: [] (Velvet Cuello MD)
--- NOTE | 2017-08-29 21:06 | RADIOLOGY REPORT ---
EXAMINATION: 1. Left knee. 2. Left femur. CLINICAL INFORMATION: Limited range of motion. Severe pain. COMPARISON: None TECHNIQUE: 1. Left knee. 4 views 2. Left femur. 2 views FINDINGS: Left knee. 2 orthopedic screws are present in parallel in the patella oriented superior inferior. No fracture line of patella. There is mild joint narrowing of the medial femoral tibial joint. No bone erosions and no bone spurring. No joint effusion. No soft tissue calcification. Left femur: No acute abnormality. No fracture. Hip joint is normal. IMPRESSION: 1. Left knee. No acute abnormality. Status post ORIF patella. 2. Left femur. No acute abnormality.
[2017-08-29 21:57] VITALS: BP 128/74
[2017-08-30] MEDS ORDERED: ZOFRAN ODT4 M1 PO (01:51)
== END 2017-08-30 02:10 ==
LOC: ERH 16:07
PROVIDERS: Emergency Medicine
DX: S80.02XA Contusion of left knee, initial encounter (principal); G43.909 Migraine, unspecified, not intractable, without status migrainosus; W19.XXXA Unspecified fall, initial encounter; Y92.9 Unspecified place or not applicable; Y93.9 Activity, unspecified
CPT/HCPCS: 73552; 73560-LT; 93005; 93010; 96372; 96374; 96375; J0131; J2550; J3030; J3101; J3250